=== PATIENT | male | born 1970 | race Caucasian/White ===

== ENCOUNTER 2018-01-03 10:33 | Outpatient (CLI) | payer OTHER ==
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
== END 2018-01-03 10:35 ==
LOC: RAD 10:33
PROVIDERS: ATTEND Family Medicine
DX: M25.572 Pain in left ankle and joints of left foot (principal)
CPT/HCPCS: 73610